=== PATIENT | male | born 1940 | race Caucasian/White ===

== ENCOUNTER 2017-12-18 14:04 | Outpatient (CLI) | payer MEDICARE, OTHER ==
--- NOTE | 2017-12-18 16:29 | MRI ---
MRI THORACIC SPINE NONCONTRAST: 12/18/17 HISTORY: 77-year-old male with "M54.14, thoracic radiculitis." COMPARISON: None. FINDINGS: Vertebral body heights are maintained. There are diffuse mild senescent bone marrow changes, but no s uspicious bone marrow signal abnormalities. Vertebral body heights are maintained. Thoracic spinal co rd is within normal limits in caliber for patient's age. No high grade bony central spinal canal sten osis or high grade bony neural foraminal stenosis, at any level. There is abundant epidural fat poste riorly and laterally within the spinal canal, causing moderate thecal sac stenosis at various levels. At C7-8, there is a shallow central disc protrusion or disc-osteophyte complex which almost abuts th e ventral surface of the spinal cord. There is moderate thecal sac stenosis at this level due to the abundant epidural fat. Very similar findings of central shallow disc protrusion or disc-osteophyte co mplex is also present at T8-9. No rosa cord compression. The conus medullaris terminates at approxim ately L1-2. There are multilevel flowing bridging osteophytes protruding into the prevertebral space throughout the mid and lower thoracic spine, consistent with DISH. Otherwise, the perivertebral space s demonstrate no major pathology. IMPRESSION: 1. Mild discogenic degenerative changes at T7-8 and T8-9 with shallow central disc protrusions. 2. Diffuse idiopathic skeletal hyperostosis (DISH). 3. No major pathology identified. POS: [facility]
--- NOTE | 2017-12-18 16:37 | MRI ---
MRI CERVICAL SPINE WITHOUT IV CONTRAST: 12/18/17 HISTORY: Cervical radicular pain. Patient states chronic neck and mid back pain which is now worse. COMPARISON: None available. FINDINGS: The visualized base of the brain demonstrates grossly normal appearance. Cervicothoracic junction has a normal appearance. There is mild nonspecific heterogeneity of the bone marrow. The paravertebral soft tissues have a nor mal MRI appearance. C2-3 level: There is mild disc osteophyte complex narrowing the ventral subarachnoid space. There is uncinate process hypertrophy on the right resulting in moderate encroachment on the right neural fora men. The left neural foramen is patent. C3-4 level: There is mild retrolisthesis of C3 on C4. A broad based disc osteophyte complex is presen t. This results in moderate to severe narrowing of the central spinal canal and there is flattening o f the spinal cord, but normal signal intensity is present in the spinal cord at this level. There is moderate right and severe left sided neural foraminal narrowing. C4-5 level: There is mild broad based disc osteophyte complex resulting in moderate narrowing of the central spinal canal. There is mild bilateral neural foraminal narrowing noted. C5-6 level: There is a mild broad based disc osteophyte complex with tiny central disc protrusion. Th is narrows the ventral subarachnoid space with very slight flattening of the anterior aspect of the s colin cord. There are mild facet degenerative changes. The left neural foramen is patent, but there i s mild sided neural foraminal narrowing. C6-7 level: There is a mild disc osteophyte complex narrowing of the ventral subarachnoid space. Neur al foramina appear patent. There is facet degenerative changes predominantly on the left. C7-T1 level: There is mild disc osteophyte complex narrowing of the ventral subarachnoid space. Neura l foramina are patent. IMPRESSION: Multilevel degenerative change in the cervical spine. Findings are greatest at the C3-4 level where t here is retrolisthesis of C3 on C4 resulting in moderate to severe narrowing of the central spinal ca nal, there is also moderate to severe right and severe left sided neural foraminal narrowing. POS: [facility]
== END 2017-12-18 14:05 | disposition home or self-care (01) ==
LOC: SCSMRI 14:04
PROVIDERS: ATTEND Specialist
DX: M47.22 Other spondylosis with radiculopathy, cervical region (principal); M43.12 Spondylolisthesis, cervical region; M48.02 Spinal stenosis, cervical region; M99.81 Other biomechanical lesions of cervical region; M51.14 Intervertebral disc disorders with radiculopathy, thoracic region; M47.24 Other spondylosis with radiculopathy, thoracic region; M48.14 Ankylosing hyperostosis [Forestier], thoracic region
CPT/HCPCS: 72141; 72146

== ENCOUNTER 2020-11-25 09:38 | Outpatient (CLI) | payer MEDICARE, OTHER ==
[2020-11-25 12:27] LABS: Hemoglobin 11.9 g/dL (13.5-17.5); Mean Corpuscular HGB CONC 32.9 g/dL (32.0-36.0); Mean Corpuscular Hemoglobin 30.4 pg (27.0-33.0); Mean Corpuscular Volume 92.6 fl (81.2-95.1); Mean Platelet Volume 10.8 fl (7.4-10.4); Platelet Count 361 10x3/uL (150-450); RBC Distribution Width 15.2 % (11.5-14.5); Red Blood Cell (RBC) Count 3.91 10x6/uL (4.32-5.72); White Blood Cell (WBC) Count 15.9 10x3/uL (3.5-10.5)
[2020-11-25 12:35] LABS: Bilirubin Neg (Negative); Blood, Urine 10 (Negative); Clarity Clear (Clear); Glucose, Urine (Dipstick) Normal (Negative); Ketone, Urine Negative (Negative); Leukocyte Negative (Negative); Nitrite Negative (Negative); Protein, Urine (Dipstick) 100 mg/dl (Neg-Trace); Specific Gravity, Urine 1.015 (1.002-1.036); Urobilinogen Normal mg/dL (Less than 2)
[2020-11-25 12:44] LABS: Anion Gap 16 mmol/L (10-20); BUN (Urea Nitrogen) 24 mg/dL (8.4-25.7); Calc. Creatinine Clearance 0 mL/min (70-130); Carbon Dioxide 23 mmol/L (23-31); Chloride 108 mmol/L (98-107); Glucose 88 mg/dL (83-110); Potassium 5.7 mmol/L (3.5-5.1); Sodium 141 mmol/L (136-145)
[2020-11-25 13:21] LABS: RBC/HPF 0-3 HPF (0-3); WBC/HPF 0-3 HPF (0-3)
[2020-11-25 13:22] LABS: Renal Epithelial 0-3 HPF (None Seen); Squamous Epithelial 0-3 HPF (0-3)
[2020-11-25 13:24] LABS: Bacteria/HPF Rare-Few HPF (None Seen)
== END 2020-11-25 09:39 | disposition home or self-care (01) ==
LOC: LABBT 09:38
PROVIDERS: ATTEND Urology
DX: Z01.818 Encounter for other preprocedural examination (principal); N40.1 Benign prostatic hyperplasia with lower urinary tract symptoms; D40.0 Neoplasm of uncertain behavior of prostate; D41.3 Neoplasm of uncertain behavior of urethra
CPT/HCPCS: 80048; 81001; 85027; 87086; 93005; 93010

== ENCOUNTER 2020-11-30 09:44 | Day surgery (SDC) | payer MEDICARE, OTHER ==
[2020-11-29 12:04] VITALS: BMI 25.0
[2020-11-30] MEDS ORDERED: Levofloxacin 500 mg/D5W 100 ml Premix Bag ONE (10:30)
[2020-11-30] MEDS ORDERED: Midazolam HCl 2 mg/2 ml Vial ONE (11:50)
[2020-11-30] MEDS ORDERED: Fentanyl 100 MCG/2 ML VIAL ONE (14:48)
[2020-11-30] MEDS ORDERED: PROPOFOL 200 MG/20 ML VIAL ONE (14:54)
[2020-11-30] MEDS ORDERED: Lidocaine 1% PF 5 ML VIAL ONE (14:54)
[2020-11-30] MEDS ORDERED: Ondansetron PF 4 MG/2 ML Vial ONE (15:52)
[2020-11-30] MEDS ORDERED: Oxybutynin 5 MG TAB ONE (16:02)
[2020-11-30] MEDS ORDERED: Promethazine HCl 25 MG/ML VIAL ONE (16:13)
[2020-11-30] MEDS ORDERED: HYDROcodone/Acetaminophen 5/325 mg Tablet ONE (17:41)
== END 2020-11-30 18:40 | disposition home or self-care (01) ==
LOC: SDC 09:44
PROVIDERS: ATTEND Urology
PROC: 0TBD8ZX Excision of Urethra, Via Natural or Artificial Opening Endoscopic, Diagnostic (ICD-10-PCS; principal; 2020-11-30)
PROC: 0VT08ZZ Resection of Prostate, Via Natural or Artificial Opening Endoscopic (ICD-10-PCS; 2020-11-30)
DX: C61 Malignant neoplasm of prostate (principal); N40.1 Benign prostatic hyperplasia with lower urinary tract symptoms; N13.8 Other obstructive and reflux uropathy; N52.9 Male erectile dysfunction, unspecified; I10 Essential (primary) hypertension; E78.5 Hyperlipidemia, unspecified; I25.10 Atherosclerotic heart disease of native coronary artery without angina pectoris; I48.91 Unspecified atrial fibrillation; E78.00 Pure hypercholesterolemia, unspecified; G89.29 Other chronic pain; M54.2 Cervicalgia; M54.9 Dorsalgia, unspecified; Z87.891 Personal history of nicotine dependence; Z79.02 Long term (current) use of antithrombotics/antiplatelets; Z79.899 Other long term (current) drug therapy; Z95.1 Presence of aortocoronary bypass graft
CPT/HCPCS: 88305; 88341; 88342; J1956; J2250; J2405; J2550; J2704; J3010

== ENCOUNTER 2021-01-28 09:44 | Outpatient (CLI) | payer MEDICARE, OTHER ==
[2021-01-28 11:49] LABS: Hemoglobin 11.3 g/dL (13.5-17.5); Mean Corpuscular HGB CONC 32.8 g/dL (32.0-36.0); Mean Corpuscular Hemoglobin 31.1 pg (27.0-33.0); Mean Platelet Volume 10.5 fl (7.4-10.4); Platelet Count 372 10x3/uL (150-450); RBC Distribution Width 15.8 % (11.5-14.5); Red Blood Cell (RBC) Count 3.63 10x6/uL (4.32-5.72); White Blood Cell (WBC) Count 13.1 10x3/uL (3.5-10.5)
[2021-01-28 12:07] LABS: Anion Gap 14 mmol/L (10-20); BUN (Urea Nitrogen) 27 mg/dL (8.4-25.7); Calc. Creatinine Clearance 0 mL/min (70-130); Calcium 9.3 mg/dL (7.8-10.44); Carbon Dioxide 23 mmol/L (23-31); Chloride 108 mmol/L (98-107); Glucose 120 mg/dL (83-110); Potassium 5.5 mmol/L (3.5-5.1); Sodium 139 mmol/L (136-145)
[2021-01-29 16:36] LABS: SARS-CoV-2 PCR by NAA Not Detected (NotDetected)
== END 2021-01-28 09:45 | disposition home or self-care (01) ==
LOC: LABBT 09:44
PROVIDERS: ATTEND Urology
DX: Z01.818 Encounter for other preprocedural examination (principal); C61 Malignant neoplasm of prostate; Z20.822 Contact with and (suspected) exposure to COVID-19
CPT/HCPCS: 80048; 85027; 93005; U0003; U0005; 93010

== ENCOUNTER 2021-02-01 06:37 | Day surgery (SDC) | payer MEDICARE ==
[2021-01-31 13:34] VITALS: BMI 28.4
[2021-02-01] MEDS ORDERED: Fentanyl 100 MCG/2 ML VIAL ONE ×2 (07:45→08:22)
[2021-02-01] MEDS ORDERED: Bupivacaine 0.25% HCL 30 ML VIAL ONE (07:55)
[2021-02-01] MEDS ORDERED: PROPOFOL 200 MG/20 ML VIAL ONE (08:35)
[2021-02-01] MEDS ORDERED: Lidocaine 1% PF 5 ML VIAL ONE (08:35)
[2021-02-01] MEDS ORDERED: Dexamethasone 20 MG/5 ML VIAL ONE (08:35)
[2021-02-01] MEDS ORDERED: Ondansetron PF 4 MG/2 ML Vial ONE (08:35)
[2021-02-01] MEDS ORDERED: ePHEDrine 50 MG/ML VIAL ONE (08:35)
[2021-02-01] MEDS ORDERED: Ketorolac Tromethamine 30 MG/ML VIAL ONE (08:35)
[2021-02-01] MEDS ORDERED: Bacitracin Zinc Ointment 30 gm TUBE ONE (09:12)
== END 2021-02-01 11:21 | disposition home or self-care (01) ==
LOC: SDC 06:37
PROVIDERS: ATTEND Urology
PROC: 0VTC0ZZ Resection of Bilateral Testes, Open Approach (ICD-10-PCS; principal; 2021-02-01)
DX: C61 Malignant neoplasm of prostate (principal); N50.89 Other specified disorders of the male genital organs; Z79.02 Long term (current) use of antithrombotics/antiplatelets; Z79.899 Other long term (current) drug therapy; Z95.1 Presence of aortocoronary bypass graft
CPT/HCPCS: 88305; J0690; J1100; J1885; J2405; J2704; J3010; J3490; S0020